=== PATIENT | male | born 1960 | race Asian ===

== ENCOUNTER 2019-01-16 09:44 | Emergency (ER) | payer MEDICAID, OTHER ==
[~2019-01-16] VITALS: Ht 167.6 cm; Wt 82.7 kg
[~2019-01-16 09:44] MED LIST: AMLO10TA4 PO; ASPI-556 PO
[2019-01-16] MEDS ORDERED: GEMF600T5 PO (10:31)
[2019-01-16] MEDS ORDERED: LISI-661 PO (10:31)
[2019-01-16] MEDS ORDERED: HYDR25TA84 PO (10:31)
[2019-01-16] MEDS ORDERED: CHL25 PO (10:31)
[2019-01-16 11:54] LABS: APPEARANCE,URINE CLEAR (CLEAR); BILIRUBIN,URINE NEGATIVE (NEGATIVE); GLUCOSE, URINE (UA) NEGATIVE (NEGATIVE); KETONES,URINE NEGATIVE (NEGATIVE); LEUKOCYTE ESTERASE ,URINE NEGATIVE (NEGATIVE); NITRATE,URINE NEGATIVE (NEGATIVE); OCCULT BLOOD,URINE NEGATIVE (NEGATIVE); PROTEIN,URINE NEGATIVE (NEGATIVE); UROBILINOGEN,URINE 0.2 mg/dL (<=1.0)
[2019-01-16 11:55] LABS: BASOPHILS % (AUTO) 0.5 % (0.0-2.0); EOSINOPHILS % (AUTO) 0.6 % (1.0-6.0); HEMATOCRIT 45.9 % (41-53); HEMOGLOBIN 15.3 g/dL (13.5-17.5); LYMPHOCYTES # (AUTO) 1.8 K/uL (1.0-4.8); MEAN CORPUSCULAR HGB CONC 33.3 G/dL (31.0-37.0); MEAN CORPUSCULAR VOLUME 93 fL (80-100); MONOCYTES # (AUTO) 0.8 K/uL (0.1-1.0); NEUTROPHILS # (AUTO) 5.2 K/uL (1.8-7.7); NEUTROPHILS % (AUTO) 65.9 % (40.0-70.0); PLATELET COUNT (AUTO) 282 K/uL (150-450); RED BLOOD CELL COUNT(AUTO) 4.93 MIL/uL (4.50-5.90); RED CELL DISTRIBUTION WIDTH 13.1 % (11.5-14.5)
[2019-01-16 12:05] LABS: INR 0.9 (0.9-1.1); PROTHROMBIN TIME 9.7 SEC (9.4-11.6)
[2019-01-16 12:12] LABS: ANION GAP 10 mmol/L (8-16); CALCIUM, TOTAL 8.7 mg/dL (8.8-10.5); CARBON DIOXIDE 25 mmol/L (22-29); CHLORIDE 105 mmol/L (98-107); CREATININE 0.89 mg/dL (0.60-1.30); GLOMERULAR FILTR. RATE CALC > 60 mL/min (>60); GLUCOSE,RANDOM 108 mg/dL (70-110); POTASSIUM 3.8 mmol/L (3.5-5.1); SODIUM SERUM 140 mmol/L (136-145); UREA NITROGEN, BLOOD 18 mg/dL (7-18)
[2019-01-16 12:13] LABS: B-TYPE NATRIURETIC PEPTIDE 12 pg/mL (0-100)
[2019-01-16 12:36] LABS: ALANINE AMINOTRANSFERASE 28 U/L (12-78); ALBUMIN 3.8 g/dL (3.4-5.0); ALKALINE PHOSPHATASE 107 U/L (46-116); ASPARTATE AMINOTRANSFERASE 21 U/L (15-37); BILIRUBIN,TOTAL 0.8 mg/dL (0.1-1.0); CREATINE KINASE, TOTAL ONLY 153 U/L (39-308); TOTAL PROTEIN, SERUM 7.6 g/dL (6.4-8.2)
[2019-01-16 14:34] VITALS: BP 137/84
== END 2019-01-16 14:43 | disposition home or self-care (01) ==
LOC: EMS 09:46
DX: F41.9 Anxiety disorder, unspecified (principal); I10 Essential (primary) hypertension; Z88.0 Allergy status to penicillin; Z79.82 Long term (current) use of aspirin; Z79.899 Other long term (current) drug therapy
CPT/HCPCS: 70450; 93005

== ENCOUNTER 2024-12-10 09:59 | Emergency (ER) | payer BC, OTHER ==
[~2024-12-10] VITALS: Ht 167.6 cm; Wt 86.4 kg
[~2024-12-10 09:59] MED LIST changes: +CHL25 PO; +GEMF-77 PO; +HYDR25TA84 PO; +LISI-893 PO
[2024-12-10 10:04] VITALS: TEMP 97.6
[2024-12-10] MEDS: AmLODIPine BESYLATE 5 MG TABLET PO ONE (10:37)
[2024-12-10 11:04] VITALS: BP 155/86; PULSE 67; RESP 18; O2SAT 97
== END 2024-12-10 11:13 | disposition home or self-care (01) ==
LOC: EMS 10:01
DX: I10 Essential (primary) hypertension (principal); F41.9 Anxiety disorder, unspecified; E78.5 Hyperlipidemia, unspecified; Z79.82 Long term (current) use of aspirin; Z79.899 Other long term (current) drug therapy; Z88.0 Allergy status to penicillin
CPT/HCPCS: 99283